=== PATIENT | male | born 1985 | race Caucasian/White ===

== ENCOUNTER 2019-11-01 09:20 | Emergency (ER) | payer MEDICAID, SELFPAY ==
[2019-11-01 09:22] VITALS: BP 149/83; PULSE 114; RESP 17; TEMP 38.5; O2SAT 94; BMI 49.4
--- NOTE | 2019-11-01 09:53 | ED.DCSUM_ITS ---
History of Present Illness Chief Complaint: Complaint Informant: Patient Onset: Yesterday Context: Sudden Onset Narrative: Patient is a 34-year-old male presenting with myalgias, chest congestion and dysuria. 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 He states it was bilateral it did not radiate. He then felt the need to urinate emergently. He went to the bathroom but noticed it was burning when he peed. He is not had any dysuria since and denies any associated hematuria. He also developed diarrhea last night. Today he is had more diffuse myalgias. He has had some chest congestion. He notes everyone in his family had the flu last weekend but he did not. He denies any associated sore throat. Patient did develop a fever this morning. He has had chloracetic but nothing else for his symptoms. Patient's is getting tubal ligation today so he was already in the hospital and thought he would just get checked out. He does have associated headache. He denies any other complaints at this time. He denies any bowel or bladder incontinence or saddle anesthesia. He denies any penile discharge or scrotal/testicular swelling/pain. Past Medical History - Allergies and Home Meds Allergies/Adverse Reactions: Allergies bee venom protein (honey bee) Allergy (Verified 11/01/19 09:21) Swelling SWELLING TO SITE. Primary Care Physician: Cinthya Tierney MD [Primary Care Provider] - Past Medical History: None Surgical History: noncontributory Lives: Spouse/ Significant Other, With Family Smoking Status: Never smoker Review of Systems General: Reports: Chills, Fever, Malaise. Denies: Sweats Eyes: Denies: Visual changes - bilaterally, Diplopia ENT: Denies: Rhinorrhea, Sore throat Cardiovascular: Reports: - - Congestion. Denies: Chest pain, Palpitations Respiratory: Denies: Dyspnea, Cough, Dyspnea on exertion Gastrointestinal: Denies: Abdominal pain, Nausea, Vomiting, Diarrhea, Melena, Hematochezia Genitourinary: Reports: Dysuria - X1?resolved. Denies: Hematuria, Frequency Musculoskeletal: Reports: Myalgias, Back pain - Bilateral lower back. Denies: Extremity Pain Skin: Denies: Rash, Wounds Neurological: Reports: Headache. Denies: Weakness, Numbness Physical Exam Vital Signs/Narrative: Vital Signs Temp Pulse Resp BP Pulse Ox 11/01/19 09:22 101.3 F H 114 H 17 149/83 H 94 Inital Vital Signs reviewed: Yes General: Well nourished, Well developed, Obese, No Acute Distress, - - resting comfortably in bed on my initial evaluation Head: Normocephalic, Atraumatic Eyes: Perrl, EOMI ENT: Moist mucous membranes, No rhinorrhea, TM's clear Neck: Supple, Nontender, No lymphadenopathy, No JVD, - - No meningeal signs Cardiovascular: Regular rate, Regular rhythm, No murmurs Respiratory: No distress, CTA bilaterally, Chest nontender Abdomen: Soft, Nontender, Nondistended, Normal bowel sounds. Negative for: Guarding, Rebound tenderness Back: Normal Inspection, - - Mild lower lumbar paraspinal tenderness to palpation bilaterally. Negative for: CVA tenderness, Spinal tenderness Extremities: Nontender, No edema Skin: Normal color, No rash Neurological: Alert, Oriented x3, Cranial nerves II-XII grossly intact, Normal Strength, Normal Sensation Psychological: Normal affect, Normal Mood Diagnostic/Tx/Re-eval Laboratory Data 11/01/19 10:00 Urine Color Yellow Urine Clarity Sl. Cloudy Urine pH 6.[address] [place] 1.015 Urine Protein 15 H Urine Glucose (UA) Normal Urine Ketones 15 H Urine Occult Blood Negative Urine Nitrite Negative Urine Bilirubin Negative Urine Urobilinogen 1 H Ur Leukocyte Esterase Negative Urine RBC 0 SEEN Urine WBC 0 SEEN Ur Squamous Epith Cells 0-5 SEEN Urine Bacteria 0 SEEN Urine Mucus 0 SEEN - Medical Decision Making Patient is evaluated for myalgias, fever, back pain and episode of dysuria that occurred yesterday. He has had flu exposures at home. He does not currently have any urinary symptoms. His vital signs are significant for tachycardia with an associated fever. Patient is given Tylenol and ibuprofen for fever in the emergency room. His presentation really is consistent with influenza. Flu swab is positive for influenza A. Urinalysis does not show any blood and I am not concerned for urinary tract infection, kidney stone or other pathology at this time. Patient be discharged home with Motrin 600. He is counseled on the typical course of influenza. Patient is counseled on signs and symptoms requiring return to the emergency room. Patient verbalizes agreement and understand this plan. Patient discharged home in stable and improved condition. ED Disposition - Plan for ED Patient: Disposition: Home or Assisted Living Diagnosis: Influenza A Instructions: INFLUENZA (Adult) Prescriptions: Ibuprofen [Motrin] 600 mg PO Q6H PRN PRN #20 tab PRN Reason: Pain Or Fever Prescription Printed Referrals: Cinthya Tierney MD [Primary Care Provider] - Additional Instructions: Plenty of fluids. Take ibuprofen 600 mg alternating with Tylenol for fever and body aches. Return the emergency room with signs of dehydration or worsening symptoms.
[2019-11-01] MEDS: Acetaminophen 500 MG Tablet 1000 MG PO (10:10)
[2019-11-01] MEDS: Ibuprofen 600 MG Tablet PO (10:11)
[2019-11-01 10:13] LABS: Bacteria 0 SEEN /hpf (None Seen); Mucous, Urine 0 SEEN /hpf (<or=2+); Red Blood Cells-Urine 0 SEEN /hpf (0-5); White Blood Cells 0 SEEN /hpf (0-5)
[2019-11-01 10:17] LABS: Color, Urine Yellow (Yellow); Glucose, Dipstick Normal (Normal); Ketone-Dipstick 15 mg/dl (Negative); Leukocyte Esterase-Dipstick Negative /ul (Negative); Nitrite-Dipstick Negative (Negative); Occult Blood-Urine Negative /ul (Negative); Protein-Dipstick 15 mg/dl (Negative); Specific Gravity, Urine 1.015 (1.002-1.030); Urine Bilirubin Dipstick Negative (Negative); Urine Clarity Sl. Cloudy (Clear); Urine Urobilinogen 1 mg/dl (Normal)
[2019-11-01 10:26] LABS: Squamous Epithelial Cells - UA 0-5 SEEN /hpf (0-5)
--- NOTE | 2019-11-01 10:41 | ED.RN ---
lab called pt positive a flu
== END 2019-11-01 11:11 | disposition home or self-care (01) ==
PROVIDERS: Emergency Provider Emergency Medicine; PCP Internal Medicine
DX: J10.1 Influenza due to other identified influenza virus with other respiratory manifestations (principal); E66.9 Obesity, unspecified
CPT/HCPCS: 81001; 87804; 99282

== ENCOUNTER 2020-05-16 18:46 | Emergency (ER) | payer MEDICAID, SELFPAY ==
[2020-05-16 18:47] VITALS: BP 164/102; PULSE 106; RESP 17; TEMP 36.1; O2SAT 95; BMI 52.9
--- NOTE | 2020-05-16 19:04 | EKG12_ITS ---
Test Reason : CP Blood Pressure : / mmHG Vent. Rate : 102 BPM Atrial Rate : 102 BPM P-R Int : 134 ms QRS Dur : 090 ms QT Int : 318 ms P-R-T Axes : 042 040 019 degrees QTc Int : 414 ms Sinus tachycardia Otherwise normal ECG Confirmed by EVERARDO JOY, VERO ([id number]), film editor supervisor SAIMA METZGER ([id number]) on 05/19/2020 2:34:19 PM Referred By: BB Confirmed By:VERO MCGEE MD
--- NOTE | 2020-05-16 19:05 | ED.VIS.CHEST ---
History of Present Illness Chief Complaint: Chest Pain Informant: Patient Onset: Days - 3 Activity at onset: Light Activity Timing: Intermittent Quality: Aching Location: Substernal - and just left of sternum, middle, radiating straight through to his upper back just left of midline Current Severity: Mild Maximum Severity: Moderate Worsened By: Breathing. Not Worsened By: Exertion, Movement of Arm, Movement of Torso, Eating, Palpation Relieved By: Nothing Associated Symptoms: Dyspnea, Palpitations - racing earlier, not sudden onset. Negative for: Nausea, Vomiting, Diaphoresis, Cough, Fever, Lightheadedness Narrative: Patient states he has been having chest discomfort off and on low several days, it has been there most of the day and feeling more achy, it was tight 3 days ago, when he noticed it at work and he felt a little nauseated at that time, and his left upper extremity in its entirety was numb, which has since resolved. Those symptoms have not returned, he did feel better later in the day and continued working without any recurrence of it. He also noticed that earlier today his blood pressure was in the 160s which is unusual for him. He denies any recent leg pain or swelling. There is no known family history of heart disease. He is treated for hypertension and diabetes. No recent long travel, immobilization, surgery, or hospitalization for any reason. No history of DVT or PE that he knows of. No recent URI symptoms, patient presents during the national coronavirus emergency declaration/pandemic. He denies any known contact with anyone infected with COVID-19. He denies traveling out of the immediate area recently. Patient has psoriasis. He used to be on Humira but it did not work well for him, so he has been off of it for some time and currently uses topical creams as needed only. - Past Medical History (1) Type 2 diabetes mellitus Status: Chronic (2) Hypertension Status: Chronic (3) Psoriasis Status: Chronic Past Medical History - Allergies and Home Meds Allergies/Adverse Reactions: Allergies bee venom protein (honey bee) Allergy (Verified 05/16/20 19:01) Swelling SWELLING TO SITE. Primary Care Physician: Cinthya Tierney MD [Primary Care Provider] - Surgical History: noncontributory Lives: Spouse/ Significant Other Smoking Status: Never smoker Drugs: None Review of Systems General: Denies: Chills, Fever, Sweats Eyes: Denies: Visual changes - bilaterally, Diplopia ENT: Denies: Rhinorrhea, Sore throat Cardiovascular: Reports: Chest pain. Denies: Palpitations Respiratory: Reports: Dyspnea. Denies: Cough, Sputum, Dyspnea on exertion, Orthopnea Gastrointestinal: Denies: Abdominal pain, Nausea, Vomiting, Diarrhea, Melena, Hematochezia Genitourinary: Denies: Dysuria, Hematuria, Frequency Musculoskeletal: Reports: Back pain. Denies: Neck pain, Swelling, Extremity Pain Skin: Denies: Rash, Wounds Neurological: Denies: Headache, Weakness, Numbness Physical Exam Vital Signs/Narrative: Vital Signs Temp Pulse Resp BP Pulse Ox 05/16/20 18:47 96.9 F L 106 H 17 164/102 H 95 Inital Vital Signs reviewed: Yes General: Well nourished, Well developed, Obese, No Acute Distress Head: Normocephalic, Atraumatic Eyes: Perrl, EOMI ENT: Moist mucous membranes, No rhinorrhea Neck: Supple, Nontender, No lymphadenopathy, No JVD Cardiovascular: Regular rate, Regular rhythm, No murmurs, Normal S1, Normal S2, - - Equal bilateral 2+/4 radial pulses Respiratory: No distress, CTA bilaterally, Chest nontender Abdomen: Soft, Nontender, Nondistended, Normal bowel sounds Back: Nontender, Normal Inspection Extremities: Nontender, No edema. Negative for: Calf Tenderness Skin: Normal color, No Trauma, Rash - Patches of psoriasis nontender without signs of infection both knees, both extensor surfaces of proximal forearms, neck trapezius area, and both pinna of his ears. Neurological: Alert, Oriented x3, Cranial nerves II-XII grossly intact, Normal Strength, Normal Sensation, Normal Gait Psychological: Normal affect, Normal Mood Diagnostic/Tx/Re-eval Chest X-Ray - ED: 1 View, Read by ED Physician, Normal, Heart, Lungs, Mediastinum, Bony Structures, No Acute Disease 05/16/20 19:50 Chest 1 View (Portable) [RAD] Stat Laboratory Results 05/16/20 05/16/20 05/16/20 19:20 19:20 19:20 WBC 7.9 RBC 4.94 Hgb 14.6 Hct 44.2 MCV 89.5 MCH 29.6 MCHC 33.0 RDW Std Deviation 40.8 RDW Coeff of Abelardo 12.5 Plt Count 265 MPV 9.3 Immature Gran % (Auto) 0.900 Neut % (Auto) 62.2 Lymph % (Auto) 23.7 [place] % (Auto) 11.0 H Eos % (Auto) 1.6 Baso % (Auto) 0.6 Absolute Neuts (auto) 4.9 Absolute Lymphs (auto) 1.88 Nucleated RBC % 0 D-Dimer Quant (PE/DVT) < 0.27 L Sodium 134 L Potassium 4.1 Chloride 99 Carbon Dioxide 30.0 Anion Gap 5 BUN 9 Creatinine 0.85 Estim Creat Clear Calc 139.69 Est GFR (MDRD) Af Amer 134 Est GFR (MDRD) Non-Af 110 BUN/Creatinine Ratio 10.6 Glucose 375 H Calcium 8.7 Troponin I < 0.015 - Rhythm Strip Rhythm Strip: Sinus Tach Rate: 102 Ectopy: None - EKG Initial EKG Interpretation: No Acute Injury Pattern - otherwise nml EKG, Sinus Tachycardia Treatment: GI Cocktail Repeat Eval: significant improvement JAZZY Risk: No Positive JAZZY Elements Score: 0 - Medical Decision Making Patient feels better after GI cocktail, and has a fairly normal work-up as above. Chest x-ray was interpreted by myself is unremarkable. Patient agrees with made decision to discharge him home with a two-week course of PPI and close outpatient follow-up with his doctor. ED Disposition - Plan for ED Patient: Disposition: Home or Assisted Living Diagnosis: Chest pain, unspecified Instructions: ED Chest Pain NonCardiac Prescriptions: Pantoprazole Sodium [Protonix] 40 mg PO DAILY #14 tab Transmission Status: Pending to [facility] Referrals: Cinthya Tierney MD [Primary Care Provider] - 1 Week if not improving
[2020-05-16 19:25] LABS: Absolute Lymphocyte Count 1.88 X10^3/uL (0.83-4.51); Absolute Neutrophil Count 4.9 X10^3/uL (2.0-7.7); Basophil# 0.05 X10^3/uL; Basophil% 0.6 % (0-1); Eosinophil# 0.13 X10^3/uL; Eosinophils% 1.6 % (0-5); Hematocrit 44.2 % (40-54); Hemoglobin 14.6 g/dL (13.0-16.5); Lymphocyte # 1.88 X10^3/ul (4.0); Lymphocyte % 23.7 % (19-41); Mean Corpuscular Hgb 29.6 pg (27.0-32.0); Mean Corpuscular Volume 89.5 fL (80-94); Mean Platelet Vol. 9.3 fl (6.2-12.0); Monocyte# 0.87 X10^3/uL; NRBC Flagged by Analyzer 0 % (0-5); Neutrophil # 4.94 X10^3/uL (2.7-7.7); Neutrophil % 62.2 % (47-70); Platelet Count 265 K/mm3 (150-450); RBC Distribution Width CV 12.5 % (11.6-14.6); RBC Distribution Width SD 40.8 fl (35.1-43.9); Red Blood Count 4.94 M/mm3 (4.6-6.2); White Blood Count 7.9 K/mm3 (4.4-11.0)
[2020-05-16] MEDS: Mag Hydrox/Al Hydrox/Simeth 30 ML UDC PO (19:29)
[2020-05-16] MEDS: 0.9% Normal Saline 1,000 ML 150 ML IV (19:30)
[2020-05-16 19:45] LABS: D-Dimer Quantitative (DVT/PE) < 0.27 FEU/ug/m (0.27-0.49)
[2020-05-16 19:46] LABS: Anion Gap 5 (5-15); BUN 9 mg/dL (7-18); BUN/Creat Ratio 10.6 RATIO (10-20); Calcium,Total 8.7 mg/dL (8.5-10.1); Chloride 99 mmol/L (98-107); Creatinine, Serum 0.85 mg/dL (0.70-1.30); EST Glomerular Filtration Rate 110 mL/min (>60); Est Glom Filt Rate - Afr Amer 134 mL/min (>60); Estimated Creatinine Clearance 139.69 ml/min; Glucose 375 mg/dL (74-106); Potassium 4.1 mmol/L (3.5-5.1); Sodium Level 134 mmol/L (136-145)
--- NOTE | 2020-05-16 19:50 | RAD_ITS ---
STUDY: X-RAY CHEST REASON FOR EXAM: Male, 35 years old. CHEST PAIN THAT STARTED TUESDAY TECHNIQUE: 2 AP portable view of the chest. COMPARISON: None. FINDINGS: The lungs are clear and expanded. There is no demonstrated pleural abnormality. Normal size heart. Normal mediastinum and charlette. Normal visualized pulmonary arteries. Normal visualized aortic arch and descending thoracic aorta. Normal visualized thoracic spine. Normal visualized ribs, clavicles, and shoulders. There is no demonstrated abnormality of the visualized soft tissue structures of the upper abdomen. RAD/Chest 1 View (Portable) IMPRESSION: Normal x-ray examination of the chest. Electronically Signed: Osmar Metz MD at 20:57 EDT , Service support ,
[2020-05-16] MEDS: Pantoprazole Sodium 40 MG Tablet PO (20:32)
[2020-05-16 20:34] VITALS: BP 158/74; PULSE 82; RESP 15; O2SAT 96
== END 2020-05-16 20:35 | disposition home or self-care (01) ==
PROVIDERS: Emergency Provider Emergency Medicine; PCP Internal Medicine
DX: R07.89 Other chest pain (principal); R06.00 Dyspnea, unspecified; M54.9 Dorsalgia, unspecified; E66.9 Obesity, unspecified; I10 Essential (primary) hypertension; E11.9 Type 2 diabetes mellitus without complications; L40.9 Psoriasis, unspecified; Z79.84 Long term (current) use of oral hypoglycemic drugs; Z79.899 Other long term (current) drug therapy
CPT/HCPCS: 71045; 80048; 84484; 85025; 85379; 93005; 96360; 99285; J7030; A4216

== ENCOUNTER → 2020-06-18 10:00 | Outpatient (CLI) | payer MEDICAID, SELFPAY ==
--- NOTE | 2020-06-20 13:03 | STRESSREP ---
Stress Test Report Date: 06/18/2020 Procedure: Exercise tolerance test Indications: Chest pain Consent: Per the patient Procedure: The patient exercised on a Emiliano protocol for 4 minutes and 30 seconds achieving a peak heart rate of 169 bpm (90% predicted maximal heart rate) with a peak blood pressure 220/110 mmHg and a peak MET capacity of approximately 6.4 MET's. The baseline ECG demonstrated normal sinus rhythm. The peak exercise ECG demonstrated sinus tachycardia with no significant ischemic ST-T changes. There is fair amount of baseline artifact. [There were no cardiac dysrhythmias pretest, during exercise, or recovery]. The functional capacity was considered decreased for age. The patient had no complaint of chest discomfort during exercise or recovery. The examination was discontinued secondary to dyspnea. Impression: 1. Technically adequate (percent predicted maximal heart rate greater than 85%) exercise tolerance test 2. Stress test is negative for exercise-induced chest pain. 3. Stress test test is negative for exercise-induced EKG changes of ischemia. 4. Functional capacity is decreased for age This note was generated with Cream Styleation software. It may contain incorrect words, spelling, and punctuation that were not noted in checking the note before signing.
== END ==
PROVIDERS: PCP Internal Medicine; Referring Provider Internal Medicine; Visit Provider Internal Medicine
DX: R07.89 Other chest pain (principal)
CPT/HCPCS: 93017

== ENCOUNTER → 2020-07-04 17:27 | Outpatient (CLI) | payer MEDICAID, SELFPAY | PROVIDERS: PCP Internal Medicine; Referring Provider Nurse Practitioner Family; Visit Provider Nurse Practitioner Family | DX: Z20.828 Contact with and (suspected) exposure to other viral communicable diseases (principal) | CPT/HCPCS: 87635; C9803; U0003 ==

== ENCOUNTER 2021-01-08 19:08 | Emergency (ER) | payer MEDICAID, SELFPAY ==
[2021-01-08 19:09] VITALS: BP 144/68; PULSE 98; RESP 18; TEMP 36.4; O2SAT 97; BMI 48.8
[2021-01-08] MEDS: Diphth,Pertuss(Acell),Tet Vac 0.5 ML Vial IM (19:50)
[2021-01-08] MEDS: Lidocaine 1% (20 ml mdv) 20 ML Vial INFILT (19:50)
--- NOTE | 2021-01-08 19:52 | ED.VIS.GEN ---
History of Present Illness Chief Complaint: Laceration Narrative: Presenting with a left eyebrow laceration. A can of pop fell on his face. He has no vision changes or any eye injury. No loss consciousness no neck pain no other injury. Past medical history: Noncontributory Medications: Noncontributory Social history: Tetanus is not up-to-date Review of systems: General: No other injury Eyes: Denies: Visual changes - bilaterally ENT: Left forehead and supraorbital laceration Musculoskeletal: Negative facial laceration Skin: Denies: Rash Neurological: Denies: Headache, no focal weakness Hematologic: Denies: Easy bruising, Easy bleeding Physical exam General: He does not appear in any distress Head: Normocephalic, Atraumatic Eyes: Eye involvement full range of motion without any pain ENT: 2 cm vertical supraorbital laceration Neck: No C-spine tenderness Cardiovascular: Regular rate, Regular rhythm Respiratory: No distress, CTA bilaterally Back: Nontender, Normal Inspection. Negative for: CVA tenderness Extremities: Nontender, No edema Skin: 2 cm laceration as above Neurological: No focal deficit Past Medical History - Allergies and Home Meds Allergies/Adverse Reactions: Allergies bee venom protein (honey bee) Allergy (Verified 01/08/21 19:11) Swelling SWELLING TO SITE. Primary Care Physician: Cinthya Tierney MD [Primary Care Provider] - Surgical History: noncontributory Smoking Status: Never smoker Physical Exam Vital Signs/Narrative: Vital Signs Temp Pulse Resp BP Pulse Ox 01/08/21 19:09 97.6 F L 98 18 144/68 H 97 Diagnostic/Tx/Re-eval - Medical Decision Making Was sutured. He tolerated procedure well tetanus updated. He does not meet criteria for CT. He will be discharged in stable condition. Procedures - Lacerations No standard instances Length: 0.79 in Depth: Skin Shape: Linear Prep: Sterile Conditions, Shure-Clens Laceration repair: Debrideded, Lidocaine Number of Sutures/Billy: 3 Suture Information: Ethilon, 6-0 ED Disposition - Plan for ED Patient: Disposition: Home or Assisted Living Instructions: ED Laceration: All Closures Referrals: Cinthya Tierney MD [Primary Care Provider] - 5 Days for suture removal
[2021-01-08 19:57] VITALS: BP 144/91; PULSE 68
== END 2021-01-08 20:00 | disposition home or self-care (01) ==
PROVIDERS: Emergency Provider Emergency Medicine; PCP Internal Medicine
DX: S01.112A Laceration without foreign body of left eyelid and periocular area, initial encounter (principal); W22.8XXA Striking against or struck by other objects, initial encounter; Y93.9 Activity, unspecified; Y92.9 Unspecified place or not applicable
CPT/HCPCS: 12011; 90471; 90715; 99283

== ENCOUNTER 2021-07-22 18:38 | Emergency (ER) | payer MEDICAID, SELFPAY ==
[2021-07-22 18:39] VITALS: BP 153/101; PULSE 117; RESP 16; TEMP 35.8; O2SAT 97; BMI 45.9
--- NOTE | 2021-07-22 18:53 | RAD_ITS ---
STUDY: X-RAY - RIGHT HAND REASON FOR EXAM: Male, 36 years old. Injury with crowbar, swelling and pain between second and third metacarpal. TECHNIQUE: 3 view(s) of the hand. COMPARISON: None. FINDINGS: Normal radiocarpal articulation. Normal distal radioulnar joint. Normal visualized carpal bones. Normal carpal articulations Normal carpometacarpal articulation of the thumb. Normal second through fifth carpometacarpal joints. Normal metacarpi. No visualized fracture. Normal metacarpophalangeal joint of the thumb. Normal interphalangeal joint of the thumb. Normal proximal and distal phalanges of the thumb. Normal metacarpophalangeal joints of the second through fifth fingers. Normal proximal and distal interphalangeal joints of the second through fifth fingers. Normal phalanges of the second through fifth fingers. The soft tissue structures are unremarkable. RAD/Hand Min 3 Views IMPRESSION: Normal x-ray examination of the hand. Electronically Signed: Osmar Metz MD at 20:11 EDT , Service support ,
--- NOTE | 2021-07-22 19:13 | EDS_ITS ---
HPI History of Present Illness Chief Complaint: Upper Extremity Injury Detail of Chief Complaint: Right hand injury Informant: patient Occured/Mechanism Mechanism/Context: Yes blunt trauma Onset/Context/Timing Onset: Today Context: Sudden Onset Timing: Continuous Current Severity: Mild Maximum Severity: Mild Associated Symptoms Associated Symptoms: Negative for Parasthesia, Weakness and Loss of Funtion Narrative Narrative: Working on a tire when the crowbar slipped and he hit his hand against the tire wheel. Complaining of pain to the dorsum of his right hand primarily in the index and long metacarpals. [id number]. No other injuries. No prior surgery to this hand. Prior similar symptoms: No Recent Illness/Hospitalization: No [facility] Medical History Diabetes HTN (hypertension) Home Medications ibuprofen 600 mg PO Q6H PRN PRN #20 tab 11/01/19 [Rx Last Taken Unknown] liraglutide 0.6 mg SQ DAILY 11/01/19 [History Last Taken Unknown] lisinopril 20 mg PO DAILY 11/01/19 [History Last Taken Unknown] metformin 500 mg PO DAILY 11/01/19 [History Last Taken Unknown] cetirizine 10 mg PO DAILY 05/16/20 [History Last Taken Unknown] hydrochlorothiazide 1 tab PO DAILY 05/16/20 [History Last Taken Unknown] omeprazole 20 mg PO DAILY 05/16/20 [History Last Taken Unknown] pantoprazole 40 mg PO DAILY #14 tab 05/16/20 [Rx Last Taken Unknown] hydrochlorothiazide 12.5 mg PO DAILY 01/08/21 [History Last Taken Unknown] Allergy/AdvReac Type Severity Reaction Status Date / Time bee venom protein (honey bee) Allergy Swelling Verified 07/22/21 18:39 Social History Smoking Status: Never smoker ROS ROS ED ROS Narrative Denies recent illness. Review of Systems ROS Unobtainable: Denies due to encephalopathy Constitutional Constitutional ED: Denies chills or fever(s) Eyes Eyes: Denies change in vision ENT ENT ED: Denies ear pain or rhinorrhea Cardiovascular Cardiovascular: Denies chest pain or palpitations Respiratory/Chest Respiratory/Chest: Denies cough or dyspnea Gastrointestinal Gastrointestinal: Denies abdominal pain, nausea or vomiting Genitourinary Genitourinary ED: Denies dysuria Musculoskeletal Musculoskeletal: Denies myalgias Integumentary Denies rash Neurologic Neurologic: Denies headache(s) Psychiatric Psychiatric: Denies depression Endocrine Endocrinology: Denies polyuria Hematologic/Lymphatic Hematologic/Lymphatic: Denies easy bruising Allergic/Immunologic Allergic/Immunologic ED: Denies urticaria EXAM Physical Exam Narrative Exam Narrative: 36-year-old male no acute distress vital signs stable afebrile. Right hand he has full flexion-extension at the wrist. Able to open close his hand without difficulty. He has tenderness along the metacarpal of the right index and long fingers. No deformity. No significant swelling. No laceration. He is able to completely open and close his right hand. Otherwise exam unremarkable. Const Vital Signs: 07/22/21 18:39 Temperature 96.5 F L Temperature Source Temporal Pulse Rate 117 H Respiratory Rate 16 Blood Pressure 153/101 H Blood Pressure Mean 118 Pulse Ox 97 Oxygen Delivery Method Room Air Positive well nourished and well developed; Negative for contractures General Appearance ED: well developed and NAD; Negative for contractures HEENT normocephalic and atraumatic Eyes PERRL and EOMs intact bilaterally Neck full ROM and supple General: Negative for tenderness Chest Wall inspection of chest normal and palpation of chest normal Resp normal respiratory effort and clear to auscultation bilaterally Effort and Inspection: Negative for pain with movement Auscultation: Negative for rales, rhonchi or wheezes Cardio regular rate, regular rhythm, S1 normal heart sound, S2 normal heart sound and no murmurs GI non-tender, non-distended and no masses Auscultation: normoactive bowel sounds Palpation: soft; Negative for tender or guarding Extremity full ROM Extremity Narrative: Dorsum of right hand has mild tenderness over the metacarpal of the right index and long finger. No gross bony deformity. Skin intact. Able to completely open and close his hand. Neurovascularly intact with normal touch sensation and cap refill. General Extremety ED: Negative for edema General Extremity: Negative for edema Neuro oriented x3 and moves all extremities Sensorium / Orientation: alert, oriented to person, oriented to place and oriented to time; Negative for lethargic or stuporous Motor Exam: strength 5/5 throughout Psych mental status grossly normal Skin Lesions: no lesions Rashes: no rashes MDM MDM MDM Narrative Medical decision making narrative: Injured right hand. X-ray obtained negative. Radiography Diagnostic Testing: Right hand x-ray 3 views interpreted by myself shows no acute fracture. No dislocation. I did go over the films with the patient. Discharge Plan Triage Chief Complaint: Upper Extremity Injury ED Provider: Mikal Rolon Dx/Rx/DC Orders Clinical Impression: Contusion of hand, right Instructions: ED Hand Contusion Prescriptions: No Action lisinopril 20 MG tablet 20 mg PO DAILY RF: 0 metformin 500 MG tablet extended release 24 hr 500 mg PO DAILY RF: 0 liraglutide 0.6 MG/0.1 ML pen injector 0.6 mg SQ DAILY RF: 0 ibuprofen 600 MG tablet 600 mg PO Q6H PRN PRN (Reason: Pain Or Fever) Qty: 20 RF: 0 hydrochlorothiazide 12.5 mg capsule 1 tab PO DAILY RF: 0 omeprazole 20 MG capsule 20 mg PO DAILY RF: 0 cetirizine 10 MG capsule 10 mg PO DAILY RF: 0 pantoprazole 40 MG tablet 40 mg PO DAILY Qty: 14 RF: 0 hydrochlorothiazide 12.5 MG capsule 12.5 mg PO DAILY RF: 0 Primary Care Provider: Cinthya Tierney Referrals: Cinthya Tierney MD [Primary Care Provider] - 1 Week if not improving Activity Restrictions/Additional Instructions: Ice and elevate your right hand to decrease pain and swelling. Motrin for pain and swelling. Follow-up if not improving but this should progressively get better but will be sore tomorrow. Disposition Disposition: Home, Self Care Discharge Date/Time: 07/22/21 19:19
== END 2021-07-22 19:19 | disposition home or self-care (01) ==
PROVIDERS: Emergency Provider Emergency Medicine; PCP Internal Medicine
DX: S60.221A Contusion of right hand, initial encounter (principal); W22.8XXA Striking against or struck by other objects, initial encounter; Y93.9 Activity, unspecified; Y92.9 Unspecified place or not applicable; I10 Essential (primary) hypertension; E11.9 Type 2 diabetes mellitus without complications; Z79.84 Long term (current) use of oral hypoglycemic drugs; Z79.899 Other long term (current) drug therapy
CPT/HCPCS: 73130; 99282

== ENCOUNTER 2021-09-29 18:02 | Emergency (ER) | payer MEDICAID, SELFPAY ==
[2021-09-29 18:03] VITALS: BP 170/100; PULSE 98; RESP 18; TEMP 36.6; O2SAT 97; BMI 48.1
--- NOTE | 2021-09-29 20:00 | EX.ED.DYSGE1 ---
HPI History of Present Illness Chief Complaint: General Illness Informant: patient Onset/Context/Timing Onset: Days (2) Timing: Continuous Worsened by: Nothing Relieved by: Nothing Narrative Narrative: Patient presents requesting COVID-19 test. Patient states he was exposed to COVID-19 2 days ago. Patient denies any symptoms. Patient has not been vaccinated against COVID-19. Patient denies any loss of taste or smell. Patient states his and child are also here being tested for COVID-19. PFSH PFS Medical History (Updated 09/29/21 @ 20:[address] Clement Maharaj DO) Diabetes HTN (hypertension) Home Medications ibuprofen 600 mg PO Q6H PRN PRN #20 tab 11/01/19 [Rx Last Taken Unknown] liraglutide 0.6 mg SQ DAILY 11/01/19 [History Last Taken Unknown] lisinopril 20 mg PO DAILY 11/01/19 [History Last Taken Unknown] metformin 500 mg PO DAILY 11/01/19 [History Last Taken Unknown] cetirizine 10 mg PO DAILY 05/16/20 [History Last Taken Unknown] hydrochlorothiazide 1 tab PO DAILY 05/16/20 [History Last Taken Unknown] omeprazole 20 mg PO DAILY 05/16/20 [History Last Taken Unknown] pantoprazole 40 mg PO DAILY #14 tab 05/16/20 [Rx Last Taken Unknown] hydrochlorothiazide 12.5 mg PO DAILY 01/08/21 [History Last Taken Unknown] Allergy/AdvReac Type Severity Reaction Status Date / Time bee venom protein (honey bee) Allergy Swelling Verified 07/22/21 18:39 Surgical History (Updated 09/29/21 @ 20:[address] Clement Maharaj DO) Hx of appendectomy Social History Smoking Status: Never smoker ROS ROS ED Constitutional Constitutional ED: Denies chills or fever(s) Eyes Eyes: Denies blurry vision or change in vision ENT ENT ED: Denies rhinorrhea or sore throat Cardiovascular Cardiovascular: Denies chest pain or palpitations Respiratory/Chest Respiratory/Chest: Denies cough or dyspnea Gastrointestinal Gastrointestinal: Denies nausea or vomiting Genitourinary Genitourinary ED: Denies dysuria or hematuria Musculoskeletal Musculoskeletal: Denies back pain or neck pain Integumentary Denies abscess or rash Neurologic Neurologic: Denies headache(s) or weakness Allergic/Immunologic Allergic/Immunologic ED: Denies mouth swelling or urticaria EXAM Physical Exam Const Vital Signs: 09/29/21 18:03 09/29/21 19:31 Temperature 97.8 F Temperature Source Temporal Pulse Rate 98 Respiratory Rate 18 Respiratory Effort Normal Respiratory Pattern Normal Blood Pressure 170/100 H Blood Pressure Mean 123 Pulse Ox 97 Oxygen Delivery Method Room Air Positive well nourished, well developed and obese General Appearance ED: well developed and NAD Nutritional Appearance: obese HEENT Reports moist mucous membranes Neck supple and no JVD Resp normal respiratory effort and clear to auscultation bilaterally Cardio regular rate, regular rhythm and no murmurs GI normal to inspection, nondistended, normoactive bowel sounds and non-tender Palpation: soft Extremity normal to inspection General Extremety ED: Negative for edema or tenderness General Extremity: Negative for edema Neuro oriented x3, CN's II-XII intact bilaterally and no sensory deficits noted Sensorium / Orientation: alert Motor Exam: strength 5/5 throughout Psych mental status grossly normal Skin no rashes or lesions noted MDM MDM MDM Narrative Medical decision making narrative: COVID-19 rapid antigen was obtained was negative. Patient was advised of his findings. Patient was instructed to follow-up with his primary care physician in 5 to 7 days. Patient understood and was agreeable with the plan. All questions were answered. Discharge Plan Triage Chief Complaint: General Illness ED Provider: Clement Maharaj Dx/Rx/DC Orders Clinical Impression: Close exposure to COVID-19 virus Instructions: Coronavirus Disease 2019 (COVID-19): Overview Prescriptions: No Action lisinopril 20 MG tablet 20 mg PO DAILY RF: 0 metformin 500 MG tablet extended release 24 hr 500 mg PO DAILY RF: 0 liraglutide 0.6 MG/0.1 ML pen injector 0.6 mg SQ DAILY RF: 0 ibuprofen 600 MG tablet 600 mg PO Q6H PRN PRN (Reason: Pain Or Fever) Qty: 20 RF: 0 hydrochlorothiazide 12.5 mg capsule 1 tab PO DAILY RF: 0 omeprazole 20 MG capsule 20 mg PO DAILY RF: 0 cetirizine 10 MG capsule 10 mg PO DAILY RF: 0 pantoprazole 40 MG tablet 40 mg PO DAILY Qty: 14 RF: 0 hydrochlorothiazide 12.5 MG capsule 12.5 mg PO DAILY RF: 0 Primary Care Provider: Cinthya Tierney Referrals: Cinthya Tierney MD [Primary Care Provider] - 5-7 Days Disposition Disposition: Home, Self Care
== END 2021-09-29 20:24 | disposition home or self-care (01) ==
PROVIDERS: Emergency Provider Emergency Medicine; PCP Internal Medicine
DX: Z20.822 Contact with and (suspected) exposure to COVID-19 (principal); E66.9 Obesity, unspecified; Z68.42 Body mass index [BMI] 45.0-49.9, adult; I10 Essential (primary) hypertension; E11.9 Type 2 diabetes mellitus without complications; Z79.84 Long term (current) use of oral hypoglycemic drugs; Z79.899 Other long term (current) drug therapy
CPT/HCPCS: 87426; 99282

== ENCOUNTER 2023-06-27 14:02 | Emergency (ER) | payer MEDICAID, SELFPAY ==
[2023-06-27 14:03] VITALS: BP 165/102; PULSE 124; RESP 18; TEMP 36.4; O2SAT 98; BMI 48.8
--- NOTE | 2023-06-27 15:58 | EDS_ITS ---
HPI <HOLLY Gibbs - Last Filed: 06/27/23 16:30> History of Present Illness Chief Complaint: Ear Problem Narrative Narrative: Presenting today with pain to his left ear that he has had for the past 3 days. He reports that he noticed a black speck in his ear canal so he tried to get it out with a Q-tip and felt a sudden pain. Today while at work he noticed yellow discharge coming from the ear and his pain worsened. He felt a little chilled today but has not had any fevers. PMH includes diabetes mellitus and hypertension. He denies any trauma to the ear. He denies any ringing in the ears or hearing changes. PFSH <HOLLY Gibbs - Last Filed: 06/27/23 16:30> [facility] Medical History Diabetes HTN (hypertension) Home Medications ibuprofen 600 mg tablet 600 mg PO Q6H PRN PRN Pain Or Fever #20 tabs 11/01/19 [Rx Last Taken Unknown] liraglutide 0.6 mg/0.1 mL (18 mg/3 mL) subcutaneous pen injector 0.6 mg SQ DAILY 11/01/19 [History Last Taken Unknown] lisinopril 20 mg tablet 20 mg PO DAILY 11/01/19 [History Last Taken Unknown] metformin 500 mg tablet,extended release 24 hr 500 mg PO DAILY 11/01/19 [History Last Taken Unknown] cetirizine 10 mg capsule 10 mg PO DAILY 05/16/20 [History Last Taken Unknown] hydrochlorothiazide 12.5 mg capsule 1 tab PO DAILY 05/16/20 [History Last Taken Unknown] omeprazole 20 mg capsule,delayed release 20 mg PO DAILY 05/16/20 [History Last Taken Unknown] pantoprazole 40 mg tablet,delayed release 40 mg PO DAILY #14 tabs 05/16/20 [Rx Last Taken Unknown] hydrochlorothiazide 12.5 mg capsule 12.5 mg PO DAILY 01/08/21 [History Last Taken Unknown] ciprofloxacin 0.2 %-hydrocortisone 1 % ear drops,suspension 3 drp LEFT EAR BID 7 days #10 mL 06/27/23 [Rx Last Taken Unknown] Allergy/AdvReac Type Severity Reaction Status Date / Time bee venom protein (honey bee) Allergy Swelling Verified 06/27/23 14:05 Surgical History Hx of appendectomy Social History Smoking Status: Never smoker ROS <HOLLY Gibbs - Last Filed: 06/27/23 16:30> ROS ED Constitutional Constitutional ED: Reports chills; Denies fever(s) ENT ENT ED: Reports ear pain left Cardiovascular Cardiovascular: Denies chest pain Respiratory/Chest Respiratory/Chest: Denies cough or dyspnea Gastrointestinal Gastrointestinal: Denies abdominal pain, nausea or vomiting Musculoskeletal Musculoskeletal: Denies arthralgias or myalgias Integumentary Denies rash Neurologic Neurologic: Denies weakness EXAM <HOLLY Gibbs - Last Filed: 06/27/23 16:30> Physical Exam Const Vital Signs: 06/27/23 14:03 06/27/23 16:02 Temperature 97.6 F L 97.6 F L Temperature Source Temporal Pulse Rate 124 H 74 Respiratory Rate 18 14 Blood Pressure 165/102 H 150/76 H Blood Pressure Mean 123 Pulse Ox 98 100 Oxygen Delivery Method Room Air Positive well nourished, well developed and no apparent distress General Appearance ED: well developed HEENT Reports normocephalic and head/scalp atraumatic HEENT Narrative: Right TM clear, left external auditory canal erythema and edema, pain with tragal manipulation. I am unable to visualize left TM. Mouth ED: Yes moist mucous membranes normal Eyes PERRL and EOMs intact bilaterally Neck full ROM and supple Chest Wall inspection of chest normal Resp normal respiratory effort and clear to auscultation bilaterally Cardio regular rate and regular rhythm GI soft to palpation, non-tender, non-distended and no masses Back/Spine normal ROM and normal to inspection Extremity normal to inspection and full ROM Neuro oriented x3, CN's II-XII intact bilaterally, moves all extremities, no focal motor deficits and no sensory deficits noted Sensorium / Orientation: awake and alert Psych mental status grossly normal and thought process normal Skin no rashes or lesions noted and no wounds <Dr. Clement Maharaj DO - Last Filed: 06/27/23 16:11> Physical Exam Const Vital Signs: 06/27/23 14:03 06/27/23 16:02 Temperature 97.6 F L 97.6 F L Temperature Source Temporal Pulse Rate 124 H 74 Respiratory Rate 18 14 Blood Pressure 165/102 H 150/76 H Blood Pressure Mean 123 Pulse Ox 98 100 Oxygen Delivery Method Room Air [facility] <HOLLY Gibbs - Last Filed: 06/27/23 16:30> [facility] Narrative Medical decision making narrative: Patient presenting with a left otitis externa. He will be started on ciprofloxacin hydrocortisone drops. He has a follow-up appointment with his ENT on Tuesday. He will be discharged home in stable condition and is comfortable with plan. He is afebrile here. He is to alternate Tylenol and ibuprofen for pain as needed. <Dr. Clement Maharaj, - Last Filed: 06/27/23 16:11> [facility] Treatment and Re-Evaluation :: I have personally performed a face to face assessment of the patient and have reviewed the NATALIE Note. I performed a substantive portion of the visit including all aspects of the following. My huerta findings include: History: Patient presents with left ear pain that has been getting worse over the past couple days. Patient states he got some dirt in his ear while he was at work. Patient states that he attempted to clean it out with a Q-tip. Patient states that after that, the pain and swelling became worse. Patient states that yesterday he felt something pop in his ear. Patient then had some discharge coming from his left ear. Patient denies any hearing changes. Patient denies any fevers or chills. Exam: Vital signs are stable except for mildly elevated blood pressure 150/76. Patient is afebrile. Patient is in no acute distress. Oral mucosa is pink and moist. The right external auditory canal and tympanic membrane are clear. The left external auditory canal is edematous and erythematous. There is tenderness with manipulation of the left external ear. The left tympanic membrane was not visualized due to the swelling of the external auditory canal. Neck is supple. Trachea is midline. There is no JVD or lymphadenopathy noted. Medical Decision Making: Patient was advised that this is likely an otitis externa. Patient states he has an appointment with the ENT in 2 days. Patient was given a prescription for Cipro HC otic. Patient was instructed to follow-up with ENT in 2 days as scheduled. Patient was instructed to take Tylenol or ibuprofen as needed for pain. Patient understood and was agreeable with the plan. All questions were answered. Discharge Plan Triage Chief Complaint: Ear Problem ED Midlevel Provider: Emily Corbin ED Provider: Clement Maharaj Dx/Rx/DC Orders Clinical Impression: Otitis externa of left ear Instructions: ED External Ear Infection (Adult) Prescriptions: New ciprofloxacin-hydrocortisone 0.2-1 % drops,suspension 3 drp LEFT EAR BID 7 Days Qty: 10 0RF No Action lisinopril 20 MG tablet 20 mg PO DAILY Patient Comments: TAKE 1 TABLET BY MOUTH EVERY DAY metformin 500 MG tablet extended release 24 hr 500 mg PO DAILY Patient Comments: TAKE 2 TABLETS BY MOUTH TWICE A DAY WITH MEALS liraglutide 0.6 MG/0.1 ML pen injector 0.6 mg SQ DAILY Patient Comments: INJECT 0.6 MG UNDER THE SKIN ONCE DAILY ibuprofen 600 MG tablet 600 mg PO Q6H PRN PRN (Reason: Pain Or Fever) Qty: 20 0RF hydrochlorothiazide 12.5 mg capsule 1 tab PO DAILY Patient Comments: TAKE 1 CAPSULE BY MOUTH EVERY DAY omeprazole 20 MG capsule 20 mg PO DAILY cetirizine 10 MG capsule 10 mg PO DAILY pantoprazole 40 MG tablet 40 mg PO DAILY Qty: 14 0RF hydrochlorothiazide 12.5 MG capsule 12.5 mg PO DAILY Primary Care Provider: Cinthya Tierney Referrals: Cinthya Tierney MD [Primary Care Provider] - 5-7 Days Activity Restrictions/Additional Instructions: Follow-up with ENT at your appointment. Return for worsening of symptoms. Use Antibiotic drops as directed. Disposition Disposition: Home, Self Care Discharge Date/Time: 06/27/23 16:10
[2023-06-27 16:02] VITALS: BP 150/76; PULSE 74; RESP 14; TEMP 36.4; O2SAT 100
== END 2023-06-27 16:10 | disposition home or self-care (01) ==
PROVIDERS: Emergency Provider Emergency Medicine; PCP Internal Medicine; Visit Provider Emergency Medicine
DX: H60.92 Unspecified otitis externa, left ear (principal); E11.9 Type 2 diabetes mellitus without complications; Z79.4 Long term (current) use of insulin; I10 Essential (primary) hypertension; Z79.899 Other long term (current) drug therapy; Z79.84 Long term (current) use of oral hypoglycemic drugs; Z90.49 Acquired absence of other specified parts of digestive tract
CPT/HCPCS: 99282

== ENCOUNTER → 2024-09-25 | Outpatient (CLI) | payer MEDICAID, SELFPAY ==
[2024-09-29 06:07] LABS: QNTFERON TB Mitogen Value > 10.00 IU/mL (.); QNTFERON TB Nil Value 0.02 IU/mL (.); QNTFERON TB1+ Ag Value 0.01 IU/mL (.); QNTFERON TB2+ Ag Value 0.01 IU/mL (.); QNTIFERON TB Positive Criteria Negative (Negative)
== END | disposition home or self-care (01) ==
LOC: MTLAB 08:22
PROVIDERS: PCP Internal Medicine; Referring Provider Physician Assistant; Visit Provider Physician Assistant
DX: L40.0 Psoriasis vulgaris (principal); Z79.899 Other long term (current) drug therapy
CPT/HCPCS: 36415; 86480